=== PATIENT | male | born 1950 | race Caucasian/White ===

== ENCOUNTER 2021-04-02 09:05 | Outpatient (CLI) | payer MEDICARE, SELFPAY ==
--- NOTE | ~2021-04-02 | US_ITS ---
EXAMINATION: US FNA w image guidance DATE: 04/02/2021 10:00 INDICATION: Nontoxic single thyroid nodule. TECHNIQUE: A time-out was performed to verify the patient's name, date of , and procedure to be performed . The procedure and its benefits and risks were discussed with the patient. Risks specifically discus sed included bleeding and infection. The patient understood the risks and agreed to proceed. The neck was prepped and draped in the usual sterile manner. 3 mL 1% lidocaine was used for local anesthesia . 6 passes were made with a 25G needle into the lesion. Appropriate needle location was documented with continuous sonographic guidance. The specimens were passed to the histologist technologist in the room. A sterile bandage was applied. There were no immediate complications. FINDINGS: Grayscale ultrasound images demonstrate biopsy needles advanced into the solid component of the previ ously noted 2.3 cm right thyroid nodule. The measurements made as part of the prior study include a c audal cystic component. The solid isoechoic component in the current study measures 1.5 x 1.2 x 1.2 c m. IMPRESSION: 1. Successful ultrasound-guided fine needle aspiration of the 1.5 cm solid isoechoic component of th e previous noted right thyroid nodule of concern. Reviewed, dictated and finalized at location A. IMPRESSION: 1. Successful ultrasound-guided fine needle aspiration of the 1.5 cm solid iso echoic component of the previous noted right thyroid nodule of concern.
== END 2021-04-02 09:06 | disposition home or self-care (01) ==
LOC: ANHIMG 09:07
PROVIDERS: PCP Family Medicine; Visit Provider Internal Medicine Endocrinology, Diabetes & Metabolism
DX: E04.1 Nontoxic single thyroid nodule (principal)
CPT/HCPCS: 10005; 88173; 88305